=== PATIENT | male | born 1985 | race Caucasian/White ===

== ENCOUNTER 2018-08-26 10:15 | Observation (INO) | payer OTHER, SELFPAY ==
[2018-08-26] VITALS (7 sets, daily range): BP systolic 109–128; BP diastolic 58–72; PULSE 45–88; RESP 11–20; TEMP 36.4–36.5; O2SAT 98–100; BMI 34.0
--- NOTE | 2018-08-26 | DI.CT.S_ITS ---
PROCEDURE: CT ANGIO CHEST INDICATIONS: Chest pain TECHNIQUE: After the administration of intravenous contrast, 2 mm thick sections acquired from the pulmonary apices to the posterior costophrenic angles. 3-dimensional maximum intensity projection (MIP) coronal and sagittal reformats were then acquired through the thorax. For radiation dose reduction, the following was used: automated exposure control, adjustment of mA and/or kV according to patient size. COMPARISON: [facility], CR, XR CHEST 1V, 08/26/2018, 10:27. FINDINGS: Image quality: Suboptimal opacification of central pulmonary arteries. Pulmonary arteries: Pulmonary arteries are normal in size, and demonstrate no intraluminal filling defects to suggest central pulmonary embolism. Lungs and pleura: Mild dependent atelectasis bilaterally. Lungs are otherwise clear. No pleural effusions or pneumothorax. Central and peripheral airways are patent. Mediastinum: Heart size is normal, without pericardial effusion. No mediastinal or hilar adenopathy. Thoracic aorta is normal in caliber and enhancement. Esophagus is normal in caliber, without hiatal hernia. Bones and chest wall: No suspicious bony lesions. Ribs and thoracic spine appear intact throughout. The inferior pole of the left thyroid lobe is lobular. No axillary or supraclavicular adenopathy. Small bone island in the left humeral head. Abdomen: Visualized upper abdominal solid organs appear normal in the early arterial phase of enhancement. Rounded densities in the splenic hilum are likely splenules. IMPRESSION: 1. Pulmonary arteries are not adequately opacified by IV contrast. This exam is nondiagnostic for pulmonary embolism. Repeat exam is suggested. 2. A small amount of fluid anterior to the aortic arch is probably a small pericardial recess. 3. Lobular contour of the inferior pole of the left thyroid lobe. Thyroid ultrasound suggested for followup. Dictated by: John Herman M.D. on 08/26/2018 at 19:51 Approved by: John Herman M.D. on 08/26/2018 at 20:06
--- NOTE | 2018-08-26 10:22 | DI.RAD.S_ITS ---
PROCEDURE: XR CHEST 1V INDICATIONS: chest pain TECHNIQUE: One view of the chest was acquired. COMPARISON: None. FINDINGS: Surgical changes and devices: None. Lungs and pleura: No pleural effusions or pneumothorax. Lungs are clear. Mediastinum: Mediastinal contours appear normal. Heart size is normal. Bones and chest wall: No suspicious bony lesions. Overlying soft tissues appear unremarkable. IMPRESSION: Negative chest. No acute cardiopulmonary process is evident. Dictated by: El Pearson M.D. on 08/26/2018 at 9:58 Approved by: El Pearson M.D. on 08/26/2018 at 9:59
[2018-08-26 10:47] LABS: Add Manual Diff / Slide Review NO; Eosinophils Percent Auto 3.8 % (2-4); Hematocrit 42.1 % (41-53); Hemoglobin 14.5 g/dL (13.5-17.5); Lymphocytes Percent Auto 38.3 % (25-40); Mean Corpuscular HGB Conc 34.4 % (30-36); Mean Corpuscular Hemoglobin 30.2 PG (26-34); Mean Corpuscular Volume 87.7 fL (80-100); Monocytes Percent Auto 7.2 % (3-14); Neutrophils Absolute Auto 3300 /uL (3000-5900); Neutrophils Percent Auto 49.7 % (50-75); Platelet Count 239 X10^3/uL (150-400); White Blood Cell Count 6.5 X10^3/uL (4.5-11.0)
[2018-08-26 10:49] LABS: INR 1.1 (0.9-1.3); Prothrombin Time 11.6 SECONDS (10.1-12.7)
[2018-08-26 10:53] LABS: PTT Partial Thromboplastin Tim 29 SECONDS (26.4-36.2)
[2018-08-26 10:55] LABS: Alanine Aminotransferase 60 IU/L (21-72); Albumin 4.7 g/dL (3.5-5.0); Albumin Globulin Ratio 1.6 (1.0-2.8); Alkaline Phosphatase 63 U/L (38-126); Aspartate Aminotransferase 39 IU/L (17-59); BUN Creatinine Ratio 21.1 (6-22); Bilirubin Total 0.5 mg/dL (0.2-1.3); Blood Urea Nitrogen 19 mg/dL (9-20); Calcium 9.7 mg/dL (8.4-10.2); Carbon Dioxide 26 mmol/L (22-32); Chloride 103 mmol/L (98-107); Creatine Kinase 161 U/L (55-170); Estimated Glomerular Filt Rate > 60.0 mL/min (>60); Glucose 93 mg/dL (70-100); HEMOLYSIS < 15 (0-50); Lipase 123 U/L (23-300); Potassium 4.2 mmol/L (3.4-5.1); Sodium 142 mmol/L (137-145); Total Protein 7.7 g/dL (6.3-8.2)
[2018-08-26 11:07] LABS: Troponin I < 0.012 ng/mL (0.01-0.034)
[2018-08-26 11:12] LABS: CKMB % Relative Index 1.2 % (1.5-5.0); Creatine Kinase MB 1.89 ng/mL (<2.37)
--- NOTE | 2018-08-26 12:35 | ED.CHESTPAIN ---
HPI - Chest Pain General Chief Complaint: Chest Pain Stated Complaint: CHEST PAIN Time Seen by Provider: 08/26/18 11:54 Source: patient Mode of arrival: ambulatory Limitations: no limitations History of Present Illness HPI narrative: this is a 33-year-old male who comes with complaint of chest pain. Patient states he has had chest pain on off for 3 days. They tend to be tender 15 min episodes that are sometimes clustered together. He will feel sort of dizzy and lightheaded when it happens. He runs regularly and stated he was running yesterday and felt very dizzy and started to get tunnel vision. He stopped, he did feel like his sugar might be low he ate some food that did seem to help a little bit but he continues to have the chest pain in the dizziness in conjunction. Patient has not had any fevers, no cold cough or congestion. No recent trauma. Patient has had regular medical appointments and has no history of diabetes, hypertension or dyslipidemia. He does have a family history significant the father getting a CT a 50. He has siblings with no known medical issues. Patient does not smoke, he does drink on the weekends, denies any other illicit drugs. 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 He runs 6-7 miles daily but during his run yesterday his limbs felt very heavy and tired. Related Data Home Medications Medication Instructions Recorded Confirmed escitalopram oxalate 10 mg PO DAILY 08/26/18 08/26/18 ibuprofen 600 mg PO TID PRN 08/26/18 08/26/18 multivitamin 1 tab PO DAILY 08/26/18 08/26/18 Allergies Allergy/AdvReac Type Severity Reaction Status Date / Time Penicillins Allergy Verified 08/26/18 10:22 Review of Systems Review of Systems All systems reviewed & are unremarkable except as noted in HPI and below Constitutional Denies fever(s) Cardiovascular Reports chest pain, Denies chest pain with activity, Denies diaphoresis, Denies syncope, Denies leg edema, Reports lightheadedness, Denies radiating jaw, neck or arm pain, Denies palpitations and Denies dyspnea Respiratory Denies change in phlegm color, Denies chest congestion, Denies cough and Denies dyspnea Gastrointestinal Gastrointestinal: Denies abdominal pain, Denies change in bowel habits, Denies diarrhea, Denies nausea and Denies vomiting Genitourinary Denies difficulty urinating Neurologic Denies syncope Endocrine Denies palpitations [facility] Medical History Anxiety (Acute) Surgical History History of tonsillectomy (Acute) Status post repair of complex wound (Acute) Family History Father Coronary artery disease of bypass graft of [place] heart with stable angina pectoris Social History household members: spouse Smoking Status: Never smoker alcohol intake: former substance use type: does not use Exam Initial Vital Signs Initial Vital Signs: Vital Signs Temperature 97.6 F 08/26/18 10:19 Pulse Rate 45 L 08/26/18 10:19 Respiratory Rate 18 08/26/18 10:19 Blood Pressure 125/72 08/26/18 10:19 Pulse Oximetry 100 08/26/18 10:19 GENERAL: Alert and oriented x three, Well-nourished, well-appearing male in mild distress. HEENT: Head normocephalic, atraumatic, EOMI, pupils reactive, face symmetric, moist mucous membranes NECK: Supple, full range of motion CARDIOVASCULAR: Regular rate and rhythm without murmurs, rubs or gallops. RESPIRATORY: Breath sounds equal bilaterally, no wheezes rales or rhonchi. ABDOMEN: Soft, nontender. Normoactive bowel sounds all 4 quadrants. No guarding or rebound, rigidity, no mass : No CVA tenderness EXTREMITIES: Normal range of motion, no clubbing or edema. Neurovascularly intact NEUROLOGICAL: Cranial nerves II through XII grossly intact. Moving all extremities SKIN: Warm, dry, no petechiae, no rashes or lesions. Scores HEART Score Heart Score history: Moderately Suspicious Heart Score EKG: Non-Specific repolarization disturbance Heart Score Age: < 45 years old Heart Score risk factors: 1-2 risk factors Heart Score troponin: < or = to normal limit Heart Score Total: 3 Course Orders Ordered: ED Orders 08/26/18 10:22 XR chest 1V Stat EKG-12 Lead Stat 08/26/18 10:30 Complete Blood Count AUTO DIFF Stat Comprehensive Metabolic Panel Stat Lipase Stat Partial Thromboplastin Time Stat Prothrombin Time INR Stat Troponin & CK Cardiac Panel Stat 08/26/18 18:06 Education, smoking cessation ONGOING 08/26/18 18:15 Troponin & CK Cardiac Panel DAILY Acetaminophen (Tylenol) 650 mg PO Q6HR PRN PRN Reason: As Needed for Fever/Mild Pain Aspirin (Aspirin Ec) 325 mg PO DAILY PRO Dextrose/Sodium Chloride (Dextrose 5%-0.9% Ns) 1,000 mls @ 100 mls/hr IV CONT PRO Last Admin: 08/26/18 18:47 Dose: 100 mls/hr Ibuprofen (Advil) 600 mg PO Q6HR PRN PRN Reason: As Needed for Fever/Mild Pain Morphine Sulfate (Morphine) 2 mg IV Q4HR PRN PRN Reason: Pain, Moderate (4-6) Ondansetron HCl (Zofran) 4 mg IV Q8HR PRN PRN Reason: Nausea And Vomiting Oxycodone HCl (Percolone) 5 mg PO Q6HR PRN PRN Reason: Pain, Moderate (4-6) Discontinued Medications Aspirin (Aspirin Chew) 324 mg PO NOW ONE Stop: 08/26/18 14:17 Last Admin: 08/26/18 14:21 Dose: 324 mg Vital Signs - 8 hr 08/26/18 11:54 08/26/18 12:35 08/26/18 13:44 Temperature Pulse Rate 88 45 L 47 L Respiratory Rate 13 11 L 14 Blood Pressure Blood Pressure [Right Arm] 124/68 121/67 119/69 Pulse Oximetry 99 98 98 08/26/18 16:12 Temperature 97.6 F Pulse Rate 47 L Respiratory Rate 14 Blood Pressure 125/72 Blood Pressure [Right Arm] Pulse Oximetry 98 MDM - Chest Pain Lab Data Attestation: I reviewed the patient's lab results. Result diagrams: 08/26/18 10:30 08/26/18 10:30 Lab Results 08/26/18 08/26/18 08/26/18 Range/Units 10:30 10:30 10:30 WBC 6.5 (4.5-11.0) X10^3/uL RBC 4.80 (4.5-5.9) X10^6/uL Hgb 14.5 (13.5-17.5) g/dL Hct 42.1 (41-53) % MCV 87.7 (80-100) fL MCH 30.2 (26-34) PG MCHC 34.4 (30-36) % RDW 13.0 (11.6-14.8) % Plt Count 239 (150-400) X10^3/uL Neut % (Auto) 49.7 L (50-75) % Lymph % (Auto) 38.3 (25-40) % [place] % (Auto) 7.2 (3-14) % Eos % (Auto) 3.8 (2-4) % Baso % (Auto) 1.0 (0-2) % Neut # (Auto) 3300 (6209-2573) /uL PT 11.6 (10.1-12.7) SECONDS INR 1.1 (0.9-1.3) APTT 29 (26.4-36.2) SECONDS Sodium 142 (137-145) mmol/L Potassium 4.2 (3.4-5.1) mmol/L Chloride 103 (98-107) mmol/L Carbon Dioxide 26 (22-32) mmol/L BUN 19 (9-20) mg/dL Creatinine 0.90 (0.66-1.25) mg/dL Estimated GFR > 60.0 (>60) mL/min BUN/Creatinine Ratio 21.1 (6-22) Glucose 93 (70-100) mg/dL Calcium 9.7 (8.4-10.2) mg/dL Total Bilirubin 0.5 (0.2-1.3) mg/dL AST 39 (17-59) IU/L ALT 60 (21-72) IU/L Alkaline Phosphatase 63 (38-126) U/L Total Creatine Kinase 161 (55-170) U/L CK-MB (CK-2) 1.89 (<2.37) ng/mL CK-MB (CK-2) Rel Index 1.2 L (1.5-5.0) % Troponin I < 0.012 (0.01-0.034) ng/mL Total Protein 7.7 (6.3-8.2) g/dL Albumin 4.7 (3.5-5.0) g/dL Globulin 3.0 (1.7-4.1) g/dL Albumin/Globulin Ratio 1.6 (1.0-2.8) Lipase 123 (23-300) U/L Imaging Data Chest x-ray: Radiologist's impression: [address] [address] XRay Report Signed Patient: BERTRAM MARIE TMR#: [id number] : 1985Acct:[id number] Age/Sex: MDate of Service: 08/26/18 Loc: ED Accession Number: [id number] Procedure: XR chest 1V Ordering Provider: Jennifer Alfaro D.O. PROCEDURE: XR CHEST 1V INDICATIONS: chest pain TECHNIQUE: One view of the chest was acquired. COMPARISON: None. FINDINGS: Surgical changes and devices: None. Lungs and pleura: No pleural effusions or pneumothorax. Lungs are clear. Mediastinum: Mediastinal contours appear normal. Heart size is normal. Bones and chest wall: No suspicious bony lesions. Overlying soft tissues appear unremarkable. IMPRESSION: Negative chest. No acute cardiopulmonary process is evident. Dictated by: El Pearson M.D. on 08/26/2018 at 9:58 Approved by: El Pearson M.D. on 08/26/2018 at 9:59 ECG Data Attestation: I personally reviewed and interpreted this ECG as follows: Prior ECG tracings: not available for review Interpretation: bradycardia with a rate in the 40s, patient has inverted T-wave in lead 3, and possible J-point elevation but no ST elevation. Patient has no reciprocal changes noted. Discharge Plan Departure Patient Disposition: Admitted as Observation Clinical Impression: Chest pain Discharge Date/Time: 08/26/18 16:26 Interventions: ED Discharge Assessment Last Done: 08/26/18 16:10 Admit Date/Time: 08/26/18 14:23 Admit Provider: Lizeth Parr
--- NOTE | 2018-08-26 12:50 | ED_ITS ---
HPI - Chest Pain General Chief Complaint: Chest Pain Stated Complaint: CHEST PAIN Time Seen by Provider: 08/26/18 11:54 Source: patient Mode of arrival: ambulatory Limitations: no limitations History of Present Illness HPI narrative: this is a 33-year-old male who comes with complaint of chest pain. Patient states he has had chest pain on off for 3 days. They tend to be tender 15 min episodes that are sometimes clustered together. He will feel sort of dizzy and lightheaded when it happens. He runs regularly and stated he was running yesterday and felt very dizzy and started to get tunnel vision. He stopped, he did feel like his sugar might be low he ate some food that did seem to help a little bit but he continues to have the chest pain in the dizziness in conjunction. Patient has not had any fevers, no cold cough or congestion. No recent trauma. Patient has had regular medical appointments and has no history of diabetes, hypertension or dyslipidemia. He does have a family history significant the father getting a CT a 50. He has siblings with no known medical issues. Patient does not smoke, he does drink on the weekends, denies any other illicit drugs. 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 He runs 6-7 miles daily but during his run yesterday his limbs felt very heavy and tired. Related Data Home Medications Medication Instructions Recorded Confirmed escitalopram oxalate 10 mg PO DAILY 08/26/18 08/26/18 ibuprofen 600 mg PO TID PRN 08/26/18 08/26/18 multivitamin 1 tab PO DAILY 08/26/18 08/26/18 Allergies Allergy/AdvReac Type Severity Reaction Status Date / Time Penicillins Allergy Verified 08/26/18 10:22 Review of Systems Review of Systems All systems reviewed & are unremarkable except as noted in HPI and below Constitutional Denies fever(s) Cardiovascular Reports chest pain, Denies chest pain with activity, Denies diaphoresis, Denies syncope, Denies leg edema, Reports lightheadedness, Denies radiating jaw, neck or arm pain, Denies palpitations and Denies dyspnea Respiratory Denies change in phlegm color, Denies chest congestion, Denies cough and Denies dyspnea Gastrointestinal Gastrointestinal: Denies abdominal pain, Denies change in bowel habits, Denies diarrhea, Denies nausea and Denies vomiting Genitourinary Denies difficulty urinating Neurologic Denies syncope Endocrine Denies palpitations [facility] Medical History Anxiety (Acute) Surgical History History of tonsillectomy (Acute) Status post repair of complex wound (Acute) Family History Father Coronary artery disease of bypass graft of [place] heart with stable angina pectoris Social History household members: spouse Smoking Status: Never smoker alcohol intake: former substance use type: does not use Exam Initial Vital Signs Initial Vital Signs: Vital Signs Temperature 97.6 F 08/26/18 10:19 Pulse Rate 45 L 08/26/18 10:19 Respiratory Rate 18 08/26/18 10:19 Blood Pressure 125/72 08/26/18 10:19 Pulse Oximetry 100 08/26/18 10:19 GENERAL: Alert and oriented x three, Well-nourished, well-appearing male in mild distress. HEENT: Head normocephalic, atraumatic, EOMI, pupils reactive, face symmetric, moist mucous membranes NECK: Supple, full range of motion CARDIOVASCULAR: Regular rate and rhythm without murmurs, rubs or gallops. RESPIRATORY: Breath sounds equal bilaterally, no wheezes rales or rhonchi. ABDOMEN: Soft, nontender. Normoactive bowel sounds all 4 quadrants. No guarding or rebound, rigidity, no mass : No CVA tenderness EXTREMITIES: Normal range of motion, no clubbing or edema. Neurovascularly intact NEUROLOGICAL: Cranial nerves II through XII grossly intact. Moving all extremities SKIN: Warm, dry, no petechiae, no rashes or lesions. Scores HEART Score Heart Score history: Moderately Suspicious Heart Score EKG: Non-Specific repolarization disturbance Heart Score Age: < 45 years old Heart Score risk factors: 1-2 risk factors Heart Score troponin: < or = to normal limit Heart Score Total: 3 Course Orders Ordered: ED Orders 08/26/18 10:22 XR chest 1V Stat EKG-12 Lead Stat 08/26/18 10:30 Complete Blood Count AUTO DIFF Stat Comprehensive Metabolic Panel Stat Lipase Stat Partial Thromboplastin Time Stat Prothrombin Time INR Stat Troponin & CK Cardiac Panel Stat 08/26/18 18:06 Education, smoking cessation ONGOING 08/26/18 18:15 Troponin & CK Cardiac Panel DAILY Acetaminophen (Tylenol) 650 mg PO Q6HR PRN PRN Reason: As Needed for Fever/Mild Pain Aspirin (Aspirin Ec) 325 mg PO DAILY PRO Dextrose/Sodium Chloride (Dextrose 5%-0.9% Ns) 1,000 mls @ 100 mls/hr IV CONT PRO Last Admin: 08/26/18 18:47 Dose: 100 mls/hr Ibuprofen (Advil) 600 mg PO Q6HR PRN PRN Reason: As Needed for Fever/Mild Pain Morphine Sulfate (Morphine) 2 mg IV Q4HR PRN PRN Reason: Pain, Moderate (4-6) Ondansetron HCl (Zofran) 4 mg IV Q8HR PRN PRN Reason: Nausea And Vomiting Oxycodone HCl (Percolone) 5 mg PO Q6HR PRN PRN Reason: Pain, Moderate (4-6) Discontinued Medications Aspirin (Aspirin Chew) 324 mg PO NOW ONE Stop: 08/26/18 14:17 Last Admin: 08/26/18 14:21 Dose: 324 mg Vital Signs - 8 hr 08/26/18 11:54 08/26/18 12:35 08/26/18 13:44 Temperature Pulse Rate 88 45 L 47 L Respiratory Rate 13 11 L 14 Blood Pressure Blood Pressure [Right Arm] 124/68 121/67 119/69 Pulse Oximetry 99 98 98 08/26/18 16:12 Temperature 97.6 F Pulse Rate 47 L Respiratory Rate 14 Blood Pressure 125/72 Blood Pressure [Right Arm] Pulse Oximetry 98 MDM - Chest Pain Lab Data Attestation: I reviewed the patient's lab results. Result diagrams: 08/26/18 10:30 08/26/18 10:30 Lab Results 08/26/18 08/26/18 08/26/18 Range/Units 10:30 10:30 10:30 WBC 6.5 (4.5-11.0) X10^3/uL RBC 4.80 (4.5-5.9) X10^6/uL Hgb 14.5 (13.5-17.5) g/dL Hct 42.1 (41-53) % MCV 87.7 (80-100) fL MCH 30.2 (26-34) PG MCHC 34.4 (30-36) % RDW 13.0 (11.6-14.8) % Plt Count 239 (150-400) X10^3/uL Neut % (Auto) 49.7 L (50-75) % Lymph % (Auto) 38.3 (25-40) % [place] % (Auto) 7.2 (3-14) % Eos % (Auto) 3.8 (2-4) % Baso % (Auto) 1.0 (0-2) % Neut # (Auto) 3300 (6372-7724) /uL PT 11.6 (10.1-12.7) SECONDS INR 1.1 (0.9-1.3) APTT 29 (26.4-36.2) SECONDS Sodium 142 (137-145) mmol/L Potassium 4.2 (3.4-5.1) mmol/L Chloride 103 (98-107) mmol/L Carbon Dioxide 26 (22-32) mmol/L BUN 19 (9-20) mg/dL Creatinine 0.90 (0.66-1.25) mg/dL Estimated GFR > 60.0 (>60) mL/min BUN/Creatinine Ratio 21.1 (6-22) Glucose 93 (70-100) mg/dL Calcium 9.7 (8.4-10.2) mg/dL Total Bilirubin 0.5 (0.2-1.3) mg/dL AST 39 (17-59) IU/L ALT 60 (21-72) IU/L Alkaline Phosphatase 63 (38-126) U/L Total Creatine Kinase 161 (55-170) U/L CK-MB (CK-2) 1.89 (<2.37) ng/mL CK-MB (CK-2) Rel Index 1.2 L (1.5-5.0) % Troponin I < 0.012 (0.01-0.034) ng/mL Total Protein 7.7 (6.3-8.2) g/dL Albumin 4.7 (3.5-5.0) g/dL Globulin 3.0 (1.7-4.1) g/dL Albumin/Globulin Ratio 1.6 (1.0-2.8) Lipase 123 (23-300) U/L Imaging Data Chest x-ray: Radiologist's impression: [address] [address] XRay Report Signed Patient: BERTRAM MARIE TMR#: [id number] : 1985Acct:[id number] Age/Sex: MDate of Service: 08/26/18 Loc: ED Accession Number: [id number] Procedure: XR chest 1V Ordering Provider: Jennifer Alfaro D.O. PROCEDURE: XR CHEST 1V INDICATIONS: chest pain TECHNIQUE: One view of the chest was acquired. COMPARISON: None. FINDINGS: Surgical changes and devices: None. Lungs and pleura: No pleural effusions or pneumothorax. Lungs are clear. Mediastinum: Mediastinal contours appear normal. Heart size is normal. Bones and chest wall: No suspicious bony lesions. Overlying soft tissues appear unremarkable. IMPRESSION: Negative chest. No acute cardiopulmonary process is evident. Dictated by: El Pearson M.D. on 08/26/2018 at 9:58 Approved by: El Pearson M.D. on 08/26/2018 at 9:59 ECG Data Attestation: I personally reviewed and interpreted this ECG as follows: Prior ECG tracings: not available for review Interpretation: bradycardia with a rate in the 40s, patient has inverted T- wave in lead 3, and possible J-point elevation but no ST elevation. Patient has no reciprocal changes noted. Discharge Plan Departure Patient Disposition: Admitted as Observation Clinical Impression: Chest pain Discharge Date/Time: 08/26/18 16:26 Interventions: ED Discharge Assessment Last Done: 08/26/18 16:10 Admit Date/Time: 08/26/18 14:23 Admit Provider: Lizeth Parr
[2018-08-26] MEDS: ASPIRIN 81 MG TAB 324 MG PO (14:21)
--- NOTE | 2018-08-26 18:11 | PM.HP.1 ---
History of Present Illness Date Patient Seen: 08/26/18 Chief complaint: CHEST PAIN Narrative: The patient is a 33-year-old male who is previously healthy who developed chest pain starting approximately 3 days ago. The patient describes the pain as sharp left-sided and intermittent. Pain lasts for a few seconds and at that time 6/10 in intensity. The pain then resolves. It occurs off and on at least once prior our the pain initially occurred at rest. Patient reports he was running and then had recurrence pain as well. Did not radiate up the arm or up the neck he had no associated shortness of breath with it. He did however feel somewhat lightheaded and dizzy. He denies any associated nausea, shortness of breath, or palpitations. The patient has had no prior history of chest pain. His family history significant for father who had coronary bypass graft at age 54. The patient denies hypertension, diabetes, or hyperlipidemia. As the pain persisted and continued for the past 3 days he presented to the emergency room for further evaluation. In the emergency room his initial set of cardiac enzymes were negative. He underwent a chest x-ray which was negative. His EKG was obtained in the emergency department which revealed sinus bradycardia. There was some early repolarization noted in leads V2 through V4. There was T-wave inversion in lead 3. The patient is admitted to the hospital this time for further evaluation. Patient History Medical History Anxiety (Acute) Surgical History History of tonsillectomy (Acute) Status post repair of complex wound (Acute) Family & Social History Social History: household members spouse Prior Living Arrangements House Safety & Behavioral: Feels Safe in Current Yes Environment Tobacco & Substance use: Smoking Status Never smoker alcohol intake former Substance Use Type does not use Meds Home Medications Medication Instructions Recorded Confirmed Type escitalopram oxalate 10 mg PO DAILY 08/26/18 08/26/18 History ibuprofen 600 mg PO TID PRN 08/26/18 08/26/18 History multivitamin 1 tab PO DAILY 08/26/18 08/26/18 History Allergies Allergy/AdvReac Type Severity Reaction Status Date / Time Penicillins Allergy Verified 08/26/18 10:22 Review of Systems Review of Systems All systems reviewed & are unremarkable except as noted in HPI and below Exam Vital Signs (past 8 hours): - 08/26/18 10:19 08/26/18 11:54 08/26/18 12:35 Temperature 97.6 F Pulse Rate 45 L 88 45 L Respiratory Rate 18 13 11 L Blood Pressure 125/72 Blood Pressure [Right Arm] 124/68 121/67 Pulse Oximetry 100 99 98 08/26/18 13:44 08/26/18 16:12 Temperature 97.6 F Pulse Rate 47 L 47 L Respiratory Rate 14 14 Blood Pressure 125/72 Blood Pressure [Right Arm] 119/69 Pulse Oximetry 98 98 Oxygen Delivery Method Room Air Narrative Exam Narrative: Pleasant well-developed well-nourished male in no acute distress HEENT: Normocephalic atraumatic, extraocular muscles are intact, oropharynx is clear, neck is supple Lungs: Clear to auscultation Chest: Palpation of the left chest causes some discomfort, that reproduces prior pain. Cardiac exam: Regular rate and rhythm normal S1 and S2 Abdomen: Soft nontender nondistended without hepatosplenomegaly Extremities: No edema Neuro exam: Nonfocal Skin exam: Tattoos on arms bilaterally Psych exam: No tics or delusion or hallucination Objective Labs Result Diagrams: 08/26/18 10:30 08/26/18 10:30 Labs: Laboratory Results - last 24 hr 08/26/18 08/26/18 08/26/18 10:30 10:30 10:30 WBC 6.5 RBC 4.80 Hgb 14.5 Hct 42.1 MCV 87.7 MCH 30.2 MCHC 34.4 RDW 13.0 Plt Count 239 Neut % (Auto) 49.7 L Lymph % (Auto) 38.3 [place] % (Auto) 7.2 Eos % (Auto) 3.8 Baso % (Auto) 1.0 Neut # (Auto) 3300 PT 11.6 INR 1.1 APTT 29 Sodium 142 Potassium 4.2 Chloride 103 Carbon Dioxide 26 BUN 19 Creatinine 0.90 Estimated GFR > 60.0 BUN/Creatinine Ratio 21.1 Glucose 93 Calcium 9.7 Total Bilirubin 0.5 AST 39 ALT 60 Alkaline Phosphatase 63 Total Creatine Kinase 161 CK-MB (CK-2) 1.89 CK-MB (CK-2) Rel Index 1.2 L Troponin I < 0.012 Total Protein 7.7 Albumin 4.7 Globulin 3.0 Albumin/Globulin Ratio 1.6 Lipase 123 Assessment & Plan (1) Chest pain: Problem details: Etiology unclear. Patient describes recurrence episodic sharp pain. He has no associated shortness of breath. Differential diagnosis includes angina, intercostal pain, or other. Will obtain serial enzymes. Will obtain a chest CT to rule out any intrathoracic abnormality. Consider stress test tomorrow if cardiac enzymes are negative. Qualifiers: Chest pain type: Ischemic chest pain type: Current visit: Yes Status: Acute
[2018-08-26] MEDS: DEXTROSE 5%-0.9% NS 1,000 ML 100 ML IV (18:47)
--- NOTE | 2018-08-26 18:58 | PC.NURSE ---
Addendum entered by Serena Kee R.N. 08/26/18 22:40: Patient continue asymptomatic. Dr. Guo made aware regarding D-DMER result. Original Note: Dorie shift note: 161 Patient admitted to from ED in stable condition via WC. No c/o chest pain, dizziness, SOB or nausea. VSS and afebrile. HR mid 40's states it is his baseline. Awaiting for new orders from hosp. Oriented to room, environment, and plan of care. 1900:Patient transported to CT scan, awake alert, pleasant and cooperative. No c/o pain or discomfort.
[2018-08-26 22:18] LABS: D Dimer 710 ng/mL (<230)
[2018-08-26 22:20] LABS: Creatine Kinase 113 U/L (55-170)
[2018-08-26 22:22] LABS: Cholesterol 189 mg/dL (140-199); HDL Cholesterol 31 mg/dL (40-60); LDL Cholesterol Calculated 109 mg/dL (<100); Triglycerides 243 mg/dL (35-150)
[2018-08-26 22:36] LABS: CKMB % Relative Index 1.1 % (1.5-5.0); Creatine Kinase MB 1.26 ng/mL (<2.37)
[2018-08-26 22:37] LABS: Troponin I < 0.012 ng/mL (0.01-0.034)
[2018-08-27] VITALS: BP 130/65; PULSE 50; RESP 16; TEMP 36.7
[2018-08-27 00:44] VITALS: O2SAT 96
--- NOTE | 2018-08-27 00:48 | PC.NURSE ---
NOC Shift Pt A/o x3, denies pain at present. IVF infusing. Tele in place. Bradycardic at baseline. Requesting not to be checked/woke up when his HR is 45, thats just where is normally sits at Denies dizziness, Discussed POC and grouping care as best we can. Pt agreeable and using light for needs.
[2018-08-27 05:16] VITALS: BP 117/67; PULSE 41; RESP 18; TEMP 36.6
[2018-08-27 08:00] VITALS: BP 114/69; PULSE 51; RESP 18; TEMP 36.5; O2SAT 99
[2018-08-27] MEDS: ASPIRIN EC 325 MG TABLET PO (09:13)
[2018-08-27 11:16] VITALS: O2SAT 99
--- NOTE | 2018-08-27 11:22 | CM.DANOTE ---
Discharge Planning/Care Management DCP assessment: initiated: Case received, EMR reviewed. Discussed case with TROY Fleming and then with Dr. Burkett in morning Team Rounds. Pt is a 33 year old male who admitted yesterday afternoon to care of the hospitalist team. Payer: Jordan Ma Pt is having a cardiac stress test today and, is ok, Dr. Burkett says he will send him back home. P: will follow prn Pt lives with his in [place] and is active ... CM Discharge Assessment Start: 08/27/18 11:20 Freq: Status: Active Protocol: Document 08/27/18 11:21 ITV (Rec: 08/27/18 11:22 ITV [id number]) Discharge Planning Assessment Advance Directives? No History Provided By Medical Record Prior Living Arrangements House Household Members spouse Comment pt is active : AILYN Post Comment pending Review Status In Process Next Review Type Continued Stay Review
--- NOTE | 2018-08-27 12:08 | P.PCN_ITS ---
Cardiac Stress Test Report Referral & Results Date Patient Seen: 08/27/18 Time Patient Seen: 12:06 Indication: Chest pain, current inpatient Rest ECG: Unremarkable Procedure Note: Today following both written and verbal informed consent the patient was exercised according to a standard Daniel protocol patient went for a total of 15 min 22 sec achieving a maximum heart rate of 153 maximum systolic blood pressure of 200. This is approximately 14.8 METS. Exercise was terminated at this point because of patient unable to continue. Patient was also given Cardiolite through a previously started Hep-Lock IV by the nuclear equipment test engineer approximately 1 minute prior to the cessation of exercise. Patient had normal blood pressure response but we failed to meet heart rate target. Heart rate quickly drop below 100 following cessation of activity. It took greater than 9 min to achieve a heart rate of greater than 100. No ST-T segment changes identified Functional aerobic impairment rates-12% on the active scale No dysrhythmias Impression: No evidence of ischemia in a patient with excellent exercise capacity Please see perfusion imaging which will be reported separately. Please note: Actual ECG tracings can be found in the PACS system.
--- NOTE | 2018-08-27 12:55 | PC.NURSE ---
Pt denies chest pain. Completed stress test and back in room at 1245.
--- NOTE | 2018-08-27 16:55 | PM.DS.1 ---
History of Present Illness Date Patient Seen: 08/27/18 Chief complaint: CHEST PAIN Narrative: The patient is a 33-year-old male who is previously healthy who developed chest pain starting approximately 3 days ago. The patient describes the pain as sharp left-sided and intermittent. Pain lasts for a few seconds and at that time 6/10 in intensity. The pain then resolves. It occurs off and on at least once prior our the pain initially occurred at rest. Patient reports he was running and then had recurrence pain as well. Did not radiate up the arm or up the neck he had no associated shortness of breath with it. He did however feel somewhat lightheaded and dizzy. He denies any associated nausea, shortness of breath, or palpitations. The patient has had no prior history of chest pain. His family history significant for father who had coronary bypass graft at age 54. The patient denies hypertension, diabetes, or hyperlipidemia. As the pain persisted and continued for the past 3 days he presented to the emergency room for further evaluation. In the emergency room his initial set of cardiac enzymes were negative. He underwent a chest x-ray which was negative. His EKG was obtained in the emergency department which revealed sinus bradycardia. There was some early repolarization noted in leads V2 through V4. There was T-wave inversion in lead 3. The patient is admitted to the hospital this time for further evaluation. Discharge Providers Date of admission: 08/26/18 14:23 Discharge provider: Colton Burkett MD Discharge Date: 08/27/18 Summary Discharge Diagnosis: Atypical chest pain/musculoskeletal causes. Baseline ECG abnormalities without significant myocardial scan irregularities. Lexapro therapy for anxiety/depression Hospital Course: His chest pain has resolved and he has ruled out for acute coronary syndrome. The initial CT angiogram of the chest was read as nondiagnostic but on further review by the radiologist today it was felt to be negative for pulmonary embolus. There was a thyroid irregularity with a lobular contour on the left inferior thyroid pole. This will need to be followed up as an outpatient. He walked for 50 min on the treadmill but reached only 82% of predicted total heart rate. Despite that, Cardiology reports to me that they feel his scan is sufficiently diagnostic to rule out ischemia. Exam Vital Signs (past 8 hours): - 08/27/18 11:16 Pulse Oximetry 99 Oxygen Delivery Method Room Air Oxygen Flow Rate 0 Narrative Exam Narrative: He is alert and oriented x3 and in no apparent distress. Heart is bradycardic with regular rhythm and no murmur. Lungs are clear to auscultation bilaterally. Extremities have no ankle edema. There is no left chest wall tenderness today. Objective Labs Result Diagrams: 08/26/18 10:30 08/26/18 10:30 Labs: Laboratory Results - last 24 hr 08/26/18 08/26/18 08/26/18 21:22 21:22 21:22 D-Dimer 710 H Total Creatine Kinase 113 CK-MB (CK-2) 1.26 CK-MB (CK-2) Rel Index 1.1 L Troponin I < 0.012 Triglycerides 243 H Cholesterol 189 LDL Cholesterol, Calc 109 H HDL Cholesterol 31 L Discharge Plan Discharge Plan Patient Disposition: Home Discharge comment: Needs outpatient Thyroid US to be arranged by PCP office after follow up there. Discharge Med Rec/Prescriptions Prescriptions: Continue ibuprofen 600 mg tablet 600 mg PO TID PRN (Reason: pain) RF: 0 escitalopram oxalate 10 mg tablet 10 mg PO DAILY RF: 0 multivitamin Tablet 1 tab PO DAILY RF: 0 Provider Discharge Instructions Diet: Diet as Tolerated Discharge Data Attending Provider: Lizeth Parr Admit Date/Time: 08/26/18 14:23
[2018-08-27 17:08] VITALS: BP 123/66; PULSE 54; RESP 18; TEMP 36.7; O2SAT 97
--- NOTE | 2018-08-28 09:35 | DI.NM.S_ITS ---
DATE OF SERVICE: 08/27/2018 PROCEDURE: Exercise perfusion study. INDICATION: Chest pain with a family history of coronary artery disease, high blood pressure. RADIOPHARMACEUTICAL: 26.0 mCi technetium-99 Myoview IV was injected at stress. This is an exercise stress test study only. CARDIAC STRESS: The patient underwent exercise stress test under the supervision of an attending staff. The patient exercised for 15 minutes 22 seconds and achieved 81% of target heart rate with normal blood pressure response, 14.8 minutes of workload, and functional aerobic impairment minus 12%. Baseline EKG revealed sinus rhythm with sinus bradycardia at a rate of 41. Peak heart rate was about 153 beats per minute. There were no obvious ischemic changes. No significant arrhythmias seen. No chest pain. RAW DATA: There is an increase of diaphragmatic activity. GATED STUDY: Stress LV ejection fraction 57% without any significant wall motion abnormalities. Lung/heart ratio is 0.38, which is within normal limits. Stress end-diastolic volume 207 mL. The patient's weight is 231 pounds. MYOCARDIAL PERFUSION: Stress supine images revealed small to moderate sized mildly decreased perfusion of base to mid anterior wall, inferior apex, basal inferior wall; which got resolved during prone images. Prone images revealed almost normal myocardial perfusion. I do not see any convincing ischemia infarction on prone images. CONCLUSION: I will call this study a normal myocardial perfusion study with evidence of tissue attention artifact, which got resolved during prone images. The patient walked on Daniel protocol for 15 minutes 22 seconds and achieved 81% target heart rate. No obvious ischemic EKG changes. Stress LV ejection fraction 57%. Overall, this is a low-risk myocardial perfusion scan. Discussed the findings with Dr. Burkett. BERTRAM MARIE - JARETH/liam/ts doc#: [id number]/job#: [id number] dd: 08/27/2018 16:54:00 dt: 08/28/2018 09:20:00 DICTATING MD/COPIES TO: Kb Yo MD COPIES MNE: ZEUS
== END 2018-08-27 17:50 | disposition home or self-care (01) ==
LOC: ED 14:19 → AC 14:24
PROVIDERS: Admitting Provider Internal Medicine; Emergency Provider Emergency Medicine; Visit Provider Internal Medicine
DX: R07.9 Chest pain, unspecified (principal); F41.9 Anxiety disorder, unspecified
CPT/HCPCS: 36415; 71045; 71275; 78451; 80053; 80061; 82550; 82553; 83690; 84484; 85025; 85379; 85610; 85730; 93005; 93016; 93017; 93018; 99283; 99285; G0378; A9502; Q9967